=== PATIENT | female | born 1985 | race Hispanic/Latino ===

== ENCOUNTER 2016-12-21 00:03 | Emergency (ER) | payer OTHER ==
[2016-12-21 00:27] VITALS: BMI 23.0
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
[2016-12-21 00:35] VITALS: BP 136/83; PULSE 80; RESP 16; TEMP 97.7; O2SAT 100
[2016-12-21] MEDS ORDERED: Oxycodone/Acetaminophen 5/325 mg Tab PO STA (00:39)
[2016-12-21] MEDS ORDERED: Silver Sulfadiazine 1% CREAM (50 gm) ONE (00:48)
[2016-12-21] MEDS ORDERED: Oxycodone/Acetaminophen 5/325 mg Tab ONE (00:48)
[2016-12-21] MEDS ORDERED: Silver Sulfadiazine 1% Cream (20 gm) TOP ONE (00:50)
== END 2016-12-21 01:30 | disposition home or self-care (01) ==
LOC: H.ER 00:03
DX: T23.152A Burn of first degree of left palm, initial encounter (principal); X19.XXXA Contact with other heat and hot substances, initial encounter; Y93.9 Activity, unspecified